=== PATIENT | male | born 1930 | race Caucasian/White ===

== ENCOUNTER 2017-02-16 05:24 | Day surgery (SDC) | payer OTHER, MEDICARE ==
[2017-02-16] VITALS (10 sets, daily range): BP systolic 135–182; BP diastolic 53–80
[~2017-02-16] VITALS: Ht 172.7 cm; Wt 68.0 kg
[~2017-02-16 05:24] MED LIST: COUMADIN; LISINOPRIL10 MG PO; LISINOPRIL2.5 MG; SIMVASTATIN40 MG PO; XARELTO10 MG PO; ZOCOR
[2017-02-16] MEDS ORDERED: NORCO 5-325 TA1 EACH PO (12:50)
[2017-02-17 04:00] VITALS: BP 170/71
[2017-02-17 05:00] VITALS: BP 155/63
[2017-02-17 08:01] VITALS: BP 172/76
[2017-02-17 12:03] VITALS: BP 172/76
[2017-02-17 14:44] VITALS: BP 172/76
== END 2017-02-17 14:45 | disposition home or self-care (01) ==
LOC: OR 05:24 → TBA 05:24 → 3N 13:58 → OR 14:13
DX: K40.90 Unilateral inguinal hernia, without obstruction or gangrene, not specified as recurrent (principal); I48.91 Unspecified atrial fibrillation; E78.00 Pure hypercholesterolemia, unspecified; Z85.46 Personal history of malignant neoplasm of prostate; Z87.891 Personal history of nicotine dependence; Z88.0 Allergy status to penicillin; Z98.890 Other specified postprocedural states; Z79.01 Long term (current) use of anticoagulants
CPT/HCPCS: 10096; 50010; 50101; 50386; 50417; 54111; 56524; 56526; 56528; 62110; 62850; 70005

== ENCOUNTER 2017-02-25 09:13 | Inpatient (IN) | payer OTHER, MEDICARE ==
[2017-02-25] VITALS (15 sets, daily range): BP systolic 82–144; BP diastolic 43–95
[~2017-02-25] VITALS: Ht 175.3 cm; Wt 65.5 kg
--- NOTE | ~2017-02-25 | EKG ---
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1930 Requested By: Ramon Flores Order Number: [id number] MD: Lavon Arango Measurements Intervals [place] Rate: 47 P: 0 NM: 228 QRS: -22 QRSD: 94 T: 18 QT: 474 QTc: 419 Interpretive Statements Atrial fibrillation with a slow ventricular response Nonspecific ST segment abnormality No previous ECG available for comparison Electronically Signed On 02-27-2017 13:08:38 CDT by Lavon Arango [email or web address] <ELECTRONICALLY SIGNED> By: Lavon Arango MD, [facility] 02/27/17 1308 0926 5 Lavon Arango MD, FACC /EPI
[~2017-02-25 09:13] MED LIST changes: +NORCO 5-325 TA1 EACH PO
[2017-02-25 10:28] LABS: MCH 33.4 pg (26.0-34.0); MCHC 34.2 g/dL (28.0-37.0); MCV 97.7 fL (80.0-100.0); PLATELET COUNT 343 thou/uL (150-400); RBC 3.89 mil/uL (4.50-6.00); RDW 13.1 % (10.5-14.5); WBC 10.5 thou/uL (4.0-11.0)
[2017-02-25 10:37] LABS: MANUAL DIFF YES
[2017-02-25 10:41] LABS: CREATININE 0.9 mg/dL (0.7-1.3); POTASSIUM 4.6 mmol/L (3.5-5.1)
[2017-02-25 11:40] LABS: ABSOLUTE NEUTROPHILS 7.1 thou/uL (1.4-8.2); TOTAL CELL COUNT 100
[2017-02-25 11:43] LABS: ANISOCYTOSIS SLIGHT
[2017-02-26] VITALS (69 sets, daily range): BP systolic 74–160; BP diastolic 35–99
[2017-02-26 05:24] LABS: ALBUMIN 3.5 g/dL (3.4-5.0); CALCIUM 8.8 mg/dL (8.5-10.1); CREATININE 0.8 mg/dL (0.7-1.3); POTASSIUM 4.2 mmol/L (3.5-5.1); TOTAL PROTEIN 6.7 g/dL (6.4-8.2)
[2017-02-27] VITALS (47 sets, daily range): BP systolic 50–151; BP diastolic 27–75
[2017-02-28 04:39] VITALS: BP 125/63
[2017-02-28 04:58] LABS: HEMATOCRIT 39.2 % (42.0-52.0); HEMOGLOBIN 13.5 gm/dL (14.0-18.0); MCH 33.1 pg (26.0-34.0); MCHC 34.6 g/dL (28.0-37.0); MCV 95.8 fL (80.0-100.0); RBC 4.09 mil/uL (4.50-6.00); RDW 13.2 % (10.5-14.5); WBC 8.4 thou/uL (4.0-11.0)
[2017-02-28 05:06] LABS: CALCIUM 8.9 mg/dL (8.5-10.1); CREATININE 1.1 mg/dL (0.7-1.3); POTASSIUM 3.9 mmol/L (3.5-5.1)
[2017-02-28 08:50] VITALS: BP 144/69
[2017-02-28 16:00] VITALS: BP 127/47
[2017-02-28 19:26] VITALS: BP 138/76
[2017-03-01 08:29] VITALS: BP 148/64
[2017-03-01 12:27] VITALS: BP 148/64
[2017-03-01 12:32] VITALS: BP 148/64
[2017-03-01 12:39] VITALS: BP 148/64
== END 2017-03-01 14:39 | disposition home or self-care (01) | DRG 917 ==
LOC: ER 09:13 → 4S 10:36 → ICU 10:36 → EROBS 10:36 → ICU 12:58 → 4S 02-27 18:33
PROVIDERS: Family Medicine; Physician Assistant
DX: T46.1X1A Poisoning by calcium-channel blockers, accidental (unintentional), initial encounter (principal); G93.40 Encephalopathy, unspecified; T39.011A Poisoning by aspirin, accidental (unintentional), initial encounter; T47.1X1A Poisoning by other antacids and anti-gastric-secretion drugs, accidental (unintentional), initial encounter; T50.2X1A Poisoning by carbonic-anhydrase inhibitors, benzothiadiazides and other diuretics, accidental (unintentional), initial encounter; T42.6X1A Poisoning by other antiepileptic and sedative-hypnotic drugs, accidental (unintentional), initial encounter; E78.5 Hyperlipidemia, unspecified; J44.9 Chronic obstructive pulmonary disease, unspecified; Z96.652 Presence of left artificial knee joint; F29 Unspecified psychosis not due to a substance or known physiological condition; T44.7X1A Poisoning by beta-adrenoreceptor antagonists, accidental (unintentional), initial encounter; R00.1 Bradycardia, unspecified; I95.2 Hypotension due to drugs; I10 Essential (primary) hypertension; I48.91 Unspecified atrial fibrillation; E78.00 Pure hypercholesterolemia, unspecified; H40.9 Unspecified glaucoma; G30.9 Alzheimer's disease, unspecified; F02.80 Dementia in other diseases classified elsewhere, unspecified severity, without behavioral disturbance, psychotic disturbance, mood disturbance, and anxiety; Z85.46 Personal history of malignant neoplasm of prostate; Z90.79 Acquired absence of other genital organ(s); Z90.49 Acquired absence of other specified parts of digestive tract; Y92.128 Other place in nursing home as the place of occurrence of the external cause; Z88.0 Allergy status to penicillin
CPT/HCPCS: 10078; 10102

== ENCOUNTER 2017-04-20 09:33 | Emergency (ER) | payer OTHER, MEDICARE ==
[~2017-04-20] VITALS: Ht 172.7 cm; Wt 68.0 kg
--- NOTE | ~2017-04-20 | EKG ---
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: : 1930 Requested By: Flora Jimenez Order Number: [id number] MD: Lavon Arango Measurements Intervals [place] Rate: 46 P: [place]: QRS: -7 QRSD: 131 T: 56 QT: 471 QTc: 412 Interpretive Statements Atrial fibrillation Nonspecific ST and T wave abnormality Baseline wander in lead(s) II,III,aVR,aVF,V2,V3 Compared to ECG 02/25/2017 09:26:33 No significant change was found Electronically Signed On 04-21-2017 7:56:50 CDT by Lavon Arango [email or web address] <ELECTRONICALLY SIGNED> By: Lavon Arango MD, [facility] 04/21/17 0756 1341 1341 Lavon Arango MD, [facility] /EPI
[2017-04-20] MEDS ORDERED: GLAUCOMA DROPS OPHTHALMIC (09:48)
[2017-04-20 10:52] LABS: PROTIME 10.7 Seconds (9.3-11.4)
[2017-04-20 13:54] LABS: ABSOLUTE NEUTROPHILS 4.7 thou/uL (1.4-8.2); BASOPHILS 0.9 % (0.0-2.0); EOSINOPHILS 3.1 % (0.0-3.0); HEMATOCRIT 38.8 % (42.0-52.0); HEMOGLOBIN 13.3 gm/dL (14.0-18.0); LYMPHOCYTES 20.6 % (24.0-44.0); MCH 32.8 pg (26.0-34.0); MCHC 34.2 g/dL (28.0-37.0); MCV 96.1 fL (80.0-100.0); MONOCYTES 10.8 % (1.0-8.0); PLATELET COUNT 311 thou/uL (150-400); POLYS 64.6 % (36.0-66.0); RBC 4.04 mil/uL (4.50-6.00); RDW 13.5 % (10.5-14.5); WBC 7.2 thou/uL (4.0-11.0)
[2017-04-20 13:58] LABS: ANION GAP 10 mmol/L (7-16); BUN 8 mg/dL (7-18); CALCIUM 9.1 mg/dL (8.5-10.1); CHLORIDE 94 mmol/L (98-107); CO2 23 mmol/L (21-32); CREATININE 0.7 mg/dL (0.7-1.3); GLUCOSE 101 mg/dL (74-106); POTASSIUM 4.4 mmol/L (3.5-5.1); SODIUM 127 mmol/L (136-145)
[2017-04-20 14:00] LABS: MANUAL DIFF NO
[2017-04-20 14:07] LABS: ALBUMIN 3.8 g/dL (3.4-5.0); ALKALINE PHOSPHATASE 78 U/L (46-116); SGOT 29 U/L (15-37); SGPT 10 U/L (30-65); TOTAL BILIRUBIN 0.8 mg/dL (<0.1-1.0); TOTAL PROTEIN 7.1 g/dL (6.4-8.2); TROPONIN-I < 0.04 ng/mL (<0.04-0.07)
== END 2017-04-20 14:34 ==
LOC: ER 09:33
PROVIDERS: Emergency Medicine
DX: S01.01XA Laceration without foreign body of scalp, initial encounter (principal); F03.90 Unspecified dementia, unspecified severity, without behavioral disturbance, psychotic disturbance, mood disturbance, and anxiety; I10 Essential (primary) hypertension; I48.91 Unspecified atrial fibrillation; E78.00 Pure hypercholesterolemia, unspecified; H40.9 Unspecified glaucoma; F10.99 Alcohol use, unspecified with unspecified alcohol-induced disorder; Z85.46 Personal history of malignant neoplasm of prostate; Z87.891 Personal history of nicotine dependence; Z88.0 Allergy status to penicillin; W18.39XA Other fall on same level, initial encounter; Y93.89 Activity, other specified; Y92.89 Other specified places as the place of occurrence of the external cause; Y99.8 Other external cause status

== ENCOUNTER 2017-05-08 19:57 | Emergency (ER) | payer OTHER, MEDICARE ==
[~2017-05-08] VITALS: Ht 172.7 cm; Wt 75.8 kg
[~2017-05-08 19:57] MED LIST changes: +GLAUCOMA DROPS OPHTHALMIC
== END 2017-05-09 00:01 | disposition home or self-care (01) ==
LOC: ER 19:57
DX: S09.90XA Unspecified injury of head, initial encounter (principal); G30.9 Alzheimer's disease, unspecified; F02.80 Dementia in other diseases classified elsewhere, unspecified severity, without behavioral disturbance, psychotic disturbance, mood disturbance, and anxiety; I10 Essential (primary) hypertension; I48.91 Unspecified atrial fibrillation; E78.00 Pure hypercholesterolemia, unspecified; H40.9 Unspecified glaucoma; F10.99 Alcohol use, unspecified with unspecified alcohol-induced disorder; Z85.46 Personal history of malignant neoplasm of prostate; Z87.891 Personal history of nicotine dependence; Z88.0 Allergy status to penicillin; W18.39XA Other fall on same level, initial encounter; Y93.89 Activity, other specified; Y92.129 Unspecified place in nursing home as the place of occurrence of the external cause; Y99.8 Other external cause status

== ENCOUNTER 2018-06-04 17:31 | Inpatient (IN) | payer OTHER, MEDICARE ==
[~2018-06-04] VITALS: Ht 177.8 cm; Wt 68.0 kg
--- NOTE | ~2018-06-04 | EKG ---
[address] [address] ELECTROCARDIOGRAM REPORT Name: LIONEL HUDSON Room #: 426-P ADM IN M.R.#: [id number] Admission: 06/04/18 Attend Phys: Dusty Delacruz MD Discharge: Date of : [birth year] Report #: [id number] THIS REPORT FOR: //name// 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 : 1930 Requested By: Lionel Jimenez Order Number: [id number] MD: Lavon Arango Measurements Intervals [place] Rate: 81 P: CT: QRS: -46 QRSD: 93 T: 53 QT: 350 QTc: 407 Interpretive Statements Atrial fibrillation Left axis deviation Anterior infarct, acute (LAD) Compared to ECG 04/29/2018 11:09:20 Left-axis deviation now present Myocardial infarct finding present Electronically Signed On 06-05-2018 8:39:20 CDT by Lavon Arango [email or web address] <ELECTRONICALLY SIGNED> By: Lavon Arango MD, [facility] 06/05/18 0839 1744 1744 Lavon Arango MD, [facility] /EPI
[2018-06-04 17:31] VITALS: BP 159/84
[2018-06-04 17:48] LABS: ABSOLUTE NEUTROPHILS 10.9 thou/uL (1.4-8.2); BASOPHILS 0.4 % (0.0-2.0); BE(vivo) -10.7 mmol/L (-2 to +3); EOSINOPHILS 1.4 % (0.0-3.0); HEMATOCRIT 41.2 % (42.0-52.0); HEMOGLOBIN 14.1 gm/dL (14.0-18.0); LYMPHOCYTES 20.6 % (24.0-44.0); MCH 34.2 pg (26.0-34.0); MCHC 34.1 g/dL (28.0-37.0); MCV 100.1 fL (80.0-100.0); MONOCYTES 1.6 % (1.0-8.0); PCO2 75.2 mmHg (35.0-45.0); PLATELET COUNT 356 thou/uL (150-400); PO2 66.9 mmHg (80.0-100.0); RBC 4.11 mil/uL (4.50-6.00); RDW 13.6 % (10.5-14.5); WBC 14.3 thou/uL (4.0-11.0); pH 7.063 (7.360-7.450); sO2 83.5 % (92.0-98.0)
[2018-06-04 17:53] LABS: ANION GAP 7 mmol/L (7-16); BUN 15 mg/dL (7-18); CHLORIDE 96 mmol/L (98-107); CO2 25 mmol/L (21-32); GLUCOSE 272 mg/dL (74-106); POTASSIUM 4.6 mmol/L (3.5-5.1); SODIUM 128 mmol/L (136-145)
[2018-06-04 18:01] LABS: ALBUMIN 3.7 g/dL (3.4-5.0); SGOT 25 U/L (15-37); SGPT 11 U/L (30-65); TOTAL BILIRUBIN 0.4 mg/dL (<0.1-1.0); TOTAL PROTEIN 7.7 g/dL (6.4-8.2); TROPONIN-I <0.06 ng/mL (<0.06)
[2018-06-04 18:24] LABS: URINE BILIRUBIN NEGATIVE (Negative); URINE BLOOD NEGATIVE (Negative); URINE CLARITY CLEAR; URINE COLOR YELLOW; URINE GLUCOSE-RANDOM* NEGATIVE (Negative); URINE KETONES NEGATIVE (Negative); URINE LEUKOCYTES-REFLEX NEGATIVE (Negative); URINE NITRITE-REFLEX NEGATIVE (Negative); URINE PROTEIN (DIPSTICK) NEGATIVE (Negative); URINE SPECIFIC GRAVITY >= 1.030 (1.005-1.035); URINE UROBILINOGEN 0.2 E.U./dl (0.2-1.0)
[2018-06-04 19:49] VITALS: BP 159/84
[2018-06-04 20:04] VITALS: BP 159/84
[2018-06-04 20:21] VITALS: BP 100/63
[2018-06-05 04:00] VITALS: BP 70/41
[2018-06-05 09:50] VITALS: BP 86/39
== END 2018-06-05 15:56 | DRG 177 ==
LOC: ER 17:31 → EROBS 18:50 → 4E 18:50
PROVIDERS: Emergency Medicine
DX: J69.0 Pneumonitis due to inhalation of food and vomit (principal); J96.01 Acute respiratory failure with hypoxia; I10 Essential (primary) hypertension; Z51.5 Encounter for palliative care; I48.91 Unspecified atrial fibrillation; Z66 Do not resuscitate; E78.00 Pure hypercholesterolemia, unspecified; H40.9 Unspecified glaucoma; G30.9 Alzheimer's disease, unspecified; F02.80 Dementia in other diseases classified elsewhere, unspecified severity, without behavioral disturbance, psychotic disturbance, mood disturbance, and anxiety; Z85.46 Personal history of malignant neoplasm of prostate; Z90.79 Acquired absence of other genital organ(s); Z87.891 Personal history of nicotine dependence; Z79.899 Other long term (current) drug therapy; Z88.0 Allergy status to penicillin; Z91.013 Allergy to seafood
CPT/HCPCS: 10084